=== PATIENT | female | born 1995 | race African-American/Black ===

== ENCOUNTER 2019-08-16 15:34 | Outpatient (RCR) | payer SELFPAY | END 2019-08-16 23:59 | disposition home or self-care (01) | LOC: ANHAUDIO 15:34 | DX: Z46.1 Encounter for fitting and adjustment of hearing aid (principal) | CPT/HCPCS: 99199 ==

== ENCOUNTER 2019-12-12 11:50 | Outpatient (RCR) | payer OTHER, SELFPAY | END 2019-12-12 23:59 | disposition home or self-care (01) | LOC: ANHAUDIO 11:50 | DX: Z46.1 Encounter for fitting and adjustment of hearing aid (principal) | CPT/HCPCS: 99199 ==

== ENCOUNTER 2020-07-03 09:31 | Outpatient (CLI) | payer OTHER, SELFPAY | END 2020-07-03 09:32 | disposition home or self-care (01) | LOC: ANHBWCAUD 09:56 | DX: H90.3 Sensorineural hearing loss, bilateral (principal) | CPT/HCPCS: 92553; 92555; 92567 ==

== ENCOUNTER 2020-07-24 09:36 | Outpatient (RCR) | payer OTHER, SELFPAY | END 2020-10-22 23:59 | disposition home or self-care (01) | LOC: ANHBWCAUD 09:36 | DX: Z46.1 Encounter for fitting and adjustment of hearing aid (principal) | CPT/HCPCS: V5257; V5264 ==

== ENCOUNTER 2021-08-20 13:57 | Outpatient (RCR) | payer BC, SELFPAY | END 2021-11-18 23:59 | disposition home or self-care (01) | LOC: ANHBWCAUD 13:57 | DX: Z46.1 Encounter for fitting and adjustment of hearing aid (principal) | CPT/HCPCS: 99199 ==

== ENCOUNTER 2022-07-01 11:00 | Outpatient (RCR) | payer BC, SELFPAY | END 2022-09-22 23:59 | disposition home or self-care (01) | LOC: ANHBWCAUD 11:00 | DX: Z46.1 Encounter for fitting and adjustment of hearing aid (principal) | CPT/HCPCS: 92592; 99199 ==